=== PATIENT | male | born 1965 | race Caucasian/White ===

== ENCOUNTER → 2016-06-14 | Outpatient (CLI) | payer OTHER ==
[~2016-06-14] MED LIST: AMB10 PO; BUPR150T7 PO; CLXUNK PO; FRC PO; METH10TA2 PO; OMEP40CA PO; VTMB12UNK PO; [UNRECOGNIZED DRUG - OTHER] PO; vitamin d3 PO
[2016-06-14 14:18] LABS: ALB/GLOB RATIO 0.8 (0.9-2); ALKALINE PHOSPHATASE 119 U/L (45-117); ALT/SGPT 34 U/L (12-78); AST/SGOT 34 U/L (15-37); BLOOD UREA NITROGEN 13 mg/dl (7-18); BUN/CREATININE RATIO 15.4 (10-20); CALCIUM 8.5 mg/dl (8.5-10.1); CARBON DIOXIDE 29 mmol/L (21-32); CHLORIDE 104 mmol/L (98-107); CHOLESTEROL 171 mg/dl (0-200); CHOLESTEROL/HDL RATIO 4.5; CREATININE 0.87 mg/dl (0.60-1.40); GLUCOSE 138 mg/dl (70-99); HDL CHOLESTEROL 38 mg/dl; LDL CHOLESTEROL CALCULATED 88 mg/dl; POTASSIUM 4.5 mmol/L (3.5-5.1); SODIUM 143 mmol/L (136-145); TRIGLYCERIDES 225 mg/dl (0-150); VERY LOW DENSITY LIPOPROT CALC 45 mg/dl
== END | disposition home or self-care (01) ==
LOC: C.LABPVFM 10:28
PROVIDERS: ATTEND Family Medicine
DX: G89.4 Chronic pain syndrome (principal)

== ENCOUNTER → 2016-06-16 | Outpatient (CLI) | payer OTHER ==
[2016-06-16 13:22] LABS: HEMATOCRIT 38.1 % (42-52); MEAN CORPUSCULAR HEMOGLOBIN 29.9 pg (25-34); MEAN CORPUSCULAR HGB CONC 33.6 g/dl (32-36); MEAN PLATELET VOLUME 11.5 fL (7.4-10.4); PLATELET COUNT 214 K/uL (130-400); RED BLOOD COUNT 4.28 M/uL (4.7-6.1); WHITE BLOOD COUNT 6.37 K/uL (4.8-10.8)
[2016-06-16 13:44] LABS: ESTIMATED AVERAGE GLUCOSE 137 mg/dl; HA1C FLAG Normal (Normal)
--- NOTE | 2016-07-15 11:58 | CODING QUERY MEDICAL NECESSITY ---
CQSUPPORTING DIAGNOSIS NEEDED A supporting diagnosis is required for the test/procedure performed on this patient in order for us to be reimbursed by the patient's insurance. Please provide a supporting diagnosis for the following test/procedure listed below next to the test name along with your signature. *If there is no additional diagnosis for this patient that would support the following test/procedure please document that below next to the test/procedure. Test(s)/Procedure(s) that require a supporting diagnosis: DOS 06/16/16 GLYCATED HEMOGLOBIN Provider Signature: Date: Thank you Aracelis Ambrocio Ring[employer] Information Management Once completed, please kindly fax back to [phone] For questions please call [phone]
== END | disposition home or self-care (01) ==
LOC: C.LABPVFM 09:49
PROVIDERS: ATTEND Family Medicine
DX: G89.4 Chronic pain syndrome (principal); R73.01 Impaired fasting glucose

== ENCOUNTER → 2016-11-28 | Outpatient (CLI) | payer OTHER ==
[~2016-11-28] MED LIST changes: +ATROPINE SULFATE 0.1 MG/ML 5ML SYR ONE; +DOBUTamine HCL 12.5 MG/ML 20 ML VIAL ONE; +METOPROLOL TARTRATE 1 MG/ML VIAL ONE; +PERFLUTREN LIPID MICROSPHERE (DEFINITY) IV ONE
--- NOTE | 2016-11-28 17:21 | DOBUTAMINE ECHO ---
*NOTICE TO RECEIVING [employer] This information is strictly Confidential and protected under [place] law. [place] law prohibits you from making any further disclosure of this information unless further disclosure is expressly permitted by the written consent of the person to whom it pertains or is authorized by law. A general authorization for the release of medical or other information is not sufficient for this purpose. Hospital accepts no responsibility if the information is made available to any other person, INCLUDING THE PATIENT. Interpretation Summary * Name: PRESTON BUNN Study Date: 11/28/2016 12:07 PM * Patient Location: [facility] * : 1965 (M/d/yyyy) Gender: Male Height: 69 in * Age: 51 yrs Ethnicity: [place] Weight: 273 lb * Ordering Physician: Yifan Bland * Referring Physician: Yifan Bland * Performed By: Peace Julio RCS * * Reason For Study: CHEST PAIN * BSA: 2.4 m2 * -- Conclusions -- * The left ventricle is borderline dilated. * Left ventricular systolic function is normal. * Diastolic dysfunction, Grade II (pseudonormalization pattern). * Normal dobutamine stress echocardiogram without evidence of inducible ischemia. Procedure Details * A contrast injection of Definity was performed to improve assessment of LV function. * Contrast was injected into an intravenous site in the right arm. * One vial of Definity ultrasound contrast was diluted in normal saline to a total volume of 10 ml. A total of '8' ml of solution was administered during imaging. * Lot # [id number] of Definity utilized for procedure. * Expiration date 1AUG. * The attending nurse who injected the contrast agent was Dayana Mensah RN. Left Ventricular Findings with Stress * Normal dobutamine stress echocardiogram without evidence of inducible ischemia. Left Ventricle * The left ventricle is borderline dilated. * There is normal left ventricular wall thickness. * Left ventricular systolic function is normal. * Diastolic dysfunction, Grade II (pseudonormalization pattern). * The left ventricular wall motion is normal at rest. Right Ventricle * The right ventricle is normal in size and function. Atria * The left atrial size is normal. * Right atrial size is normal. Mitral Valve * The mitral valve anatomy is normal. * There is no mitral regurgitation noted. Tricuspid Valve * The tricuspid valve is not well visualized, but is grossly normal. * Significant tricuspid regurgitation is absent. Aortic Valve * The aortic valve is normal in structure and function. * No hemodynamically significant valvular aortic stenosis. * There is no significant aortic regurgitation. Pericardium * There is no pericardial effusion. Stress Parameters * Normal baseline electrocardiogram. * Upsloping ST depression in lead II only during peak dobutamine. * Rest heart rate was '53' BPM. * Rest blood pressure was '113/76' * Maximum heart rate achieved was 146 bpm. * Maximum heart rate was 85 % of maximum age-predicted heart rate. * Maximum blood pressure was '186/96' * Maximum Dobutamine infusion rate was '50' mcg/kg/min. * A total of 0.5 mg of intravenous Atropine was used to supplement Dobutamine for heart rate response. * Dobutamine infusion was terminated due to achieving target heart rate * A total of 5 mg of IV Metoprolol was administered to reverse Dobutamine-induced tachycardia. * The patient did not exhibit any symptoms during drug infusion. Left Ventricular Findings with Stress * Normal baseline echocardiogram with normal augmentation to dobutamine. No inducible wall motion abnormalities. Normal baseline EKG with some upsloping ST depression in lead II only. No symptoms reported MMode 2D Measurements and Calculations IVSd 0.92 cm LVIDd 5.7 cm LVIDs 3.3 cm LVPWd 0.91 cm IVS/LVPW 1.0 FS 42.6 % EDV(Teich) 160.4 ml ESV(Teich) 43.3 ml EF(Teich) 73.0 % EDV(cubed) 185.8 ml ESV(cubed) 35.1 ml EF(cubed) 81.1 % LV mass(C)d 203.2 grams LV mass(C)dI 86.2 grams/m\S\2 SV(Teich) 117.1 ml SI(Teich) 49.7 ml/m\S\2 SV(cubed) 150.7 ml SI(cubed) 63.9 ml/m\S\2 LVAd ap4 36.7 cm\S\2 LVLd ap4 8.8 cm EDV(MOD-sp4) 120.1 ml EDV(sp4-el) 129.9 ml LVAs ap4 17.3 cm\S\2 LVLs ap4 6.8 cm ESV(MOD-sp4) 36.1 ml ESV(sp4-el) 37.3 ml EF(MOD-sp4) 69.9 % EF(sp4-el) 71.3 % LVAd ap2 36.1 cm\S\2 LVLd ap2 9.8 cm EDV(MOD-sp2) 109.7 ml EDV(sp2-el) 113.7 ml LVAs ap2 18.8 cm\S\2 LVLs ap2 7.4 cm ESV(MOD-sp2) 40.1 ml ESV(sp2-el) 40.6 ml EF(MOD-sp2) 63.4 % EF(sp2-el) 64.3 % LVLd %diff 9.9 % EDV(MOD-bp) 119.1 ml LVLs %diff 8.3 % ESV(MOD-bp) 39.7 ml EF(MOD-bp) 66.6 % SV(MOD-sp4) 84.0 ml SI(MOD-sp4) 35.6 ml/m\S\2 SV(MOD-sp2) 69.5 ml SI(MOD-sp2) 29.5 ml/m\S\2 SV(MOD-bp) 79.3 ml SI(MOD-bp) 33.7 ml/m\S\2 SV(sp4-el) 92.6 ml SI(sp4-el) 39.3 ml/m\S\2 SV(sp2-el) 73.1 ml SI(sp2-el) 31.0 ml/m\S\2 Doppler Measurements and Calculations MV E max jasper 94.6 cm/sec MV A max jasper 76.2 cm/sec MV E/A 1.2 MV dec time 0.18 sec Ao V2 max 150.7 cm/sec Ao max PG 9.1 mmHg Ao max PG (full) 4.6 mmHg LV V1 max PG 4.5 mmHg LV V1 mean PG 2.2 mmHg LV V1 max 105.7 cm/sec LV V1 mean 67.0 cm/sec LV V1 VTI 22.9 cm
--- NOTE | 2016-12-04 13:53 | CODING QUERY MEDICAL NECESSITY ---
CQSUPPORTING DIAGNOSIS NEEDED A supporting diagnosis is required for the test/procedure performed on this patient in order for us to be reimbursed by the patient's insurance. Please provide a supporting diagnosis for the following test/procedure listed below next to the test name along with your signature. *If there is no additional diagnosis for this patient that would support the following test/procedure please document that below next to the test/procedure. Test(s)/Procedure(s) that require a supporting diagnosis: KARTHIKEYAN 11/28/16 TRANSESOPHAGEAL ECHO CARDIOGRAM Provider Signature: Date: Thank you Aracelis Ambrocio Health Information Management Once completed, please kindly fax back to [phone] For questions please call [phone]
== END | disposition home or self-care (01) ==
LOC: C.CPL 11:47
PROVIDERS: ATTEND Family Medicine
DX: R07.89 Other chest pain (principal); I20.0 Unstable angina; R06.00 Dyspnea, unspecified; E66.01 Morbid (severe) obesity due to excess calories; I10 Essential (primary) hypertension; E78.5 Hyperlipidemia, unspecified

== ENCOUNTER 2017-09-19 01:35 | Emergency (ER) | payer OTHER ==
[~2017-09-19] VITALS: Ht 175.3 cm; Wt 129.1 kg
[~2017-09-19 01:35] MED LIST changes: -ATROPINE SULFATE 0.1 MG/ML 5ML SYR ONE; -DOBUTamine HCL 12.5 MG/ML 20 ML VIAL ONE; -METOPROLOL TARTRATE 1 MG/ML VIAL ONE; -PERFLUTREN LIPID MICROSPHERE (DEFINITY) IV ONE
[2017-09-19 01:39] VITALS: TEMP 36.7; Ht 175.3 cm; Wt 129.1 kg
--- NOTE | 2017-09-19 02:26 | EMERGENCY ROOM VISIT NOTE ---
History Report prepared by Nato: Devika Moy Under the Supervision of: Dr. Kaylee King D.O. First contact with patient: 01:54 Chief Complaint: EAR PAIN Stated Complaint: SEVERE PAIN IN RIGHT EAR DUE TO INFECTED PIERCING History of Present Illness The patient is a 52 year old male who presents to the Emergency Room with complaints of worsening pain and swelling to his left ear beginning yesterday. The patient reports he got his ear pieced a week ago to "help with my migraines ". He reports his pain radiates to his jaw. The patient reports he attempted to take the earring out but was unable too. He has a history of PHILLIPS, a nonspecific muscle disease, and migraines. He denies any abdominal pain, nausea , vomiting, fevers or chills. The patient took ibuprofen at 11 pm last night. Source of History: patient Onset: yesterday Position: ear (left) Quality: other (swelling and pain) Timing: worsening Associated Symptoms: No fevers, No chills, No nausea, No vomiting, No abdominal pain Review of Systems See HPI for pertinent positives & negatives. A total of 10 systems reviewed and were otherwise negative. Past Medical & Surgical Medical Problems: (1) Migraines (2) PHILLIPS (nonalcoholic steatohepatitis) Family History Patient reports no known family medical history. Social History Smoking Status: Never Smoker Alcohol Use: none Marital Status: Occupation Status: disabled Current/Historical Medications Scheduled Acetamin/Butalbital/Caffeine (Fioricet 325MG/50MG/40MG *), 1 TAB PO PRN Bupropion Hcl (Wellbutrin Sr), 150 MG PO DAILY Cephalexin Monohydrate (Keflex), 500 MG PO QID Citalopram (Celexa Unknown Dose), 40 MG PO DAILY Cyanocobalamin (Vitamin B-12 Unkown Dose), 1 TAB PO DAILY Methadone Hcl (Dolophine), 20 MG PO BID Omeprazole (Prilosec), 40 MG PO DAILY Ursodiol (Actigall Unknown Dose), 1 TABLET PO DAILY Zolpidem Tartrate (Ambien *), 10 MG PO HS [vitamin d3], 1 TAB PO DAILY Allergies Coded Allergies: Penicillins (Verified Allergy, Unknown, 12/21/11) Physical Exam Vital Signs Date Time Temp Pulse Resp B/P (MAP) Pulse Ox O2 Delivery O2 Flow Rate FiO2 09/19/17 04:34 61 15 130/67 94 09/19/17 03:41 60 18 136/95 96 Room Air 09/19/17 01:39 36.7 65 16 142/90 96 Room Air Physical Exam HEENT: Head - normocephalic and atraumatic Pupils are equal, round, and reactive to light. Extraocular eye muscles are intact, and sclera are anicteric. Ear- right pinna appears moderately edematous and erythematous, piercing is in place of cartilaginous potion of the pinna with pus drainage. Nose - moist nasal mucosa without discharge. Mouth - moist buccal mucosa. Oropharynx is nonerythematous and there is no tonsillar exudate or edema noted. Neck: Supple; no JVD, nuchal rigidity, cervical lymphadenopathy. Heart: Regular rate and rhythm. There is a normal S1 and S2 with no murmurs, clicks, or gallops appreciated. Lungs: Clear to auscultation bilaterally with no wheezes, rales, or rhonchi. Abdomen: Soft, completely nontender, nondistended, with good bowel sounds. There are no palpable pulsatile masses or hepatosplenomegaly. There is no guarding, rigidity, or rebound noted. Extremities: No evidence of cyanosis, clubbing, or edema. There are easily palpable peripheral pulses. Skin: warm and dry with good turgor and no rashes. Medical Decision & Procedures Laboratory Results 09/19/17 02:45 Red Blood Count 4.00, Mean Corpuscular Volume 87.3, Mean Corpuscular Hemoglobin 29.0, Mean Corpuscular Hemoglobin Concent 33.2, Mean Platelet Volume 10.5, Neutrophils (%) (Auto) 45.6, Lymphocytes (%) (Auto) 43.8, Monocytes (%) (Auto) 7.0, Eosinophils (%) (Auto) 3.2, Basophils (%) (Auto) 0.2, Neutrophils # (Auto) 2.61, Lymphocytes # (Auto) 2.50, Monocytes # (Auto) 0.40, Eosinophils # (Auto) 0.18, Basophils # (Auto) 0.01 09/19/17 02:45 Test 09/19/17 02:45 White Blood Count 5.71 K/uL (4.8-10.8) Red Blood Count 4.00 M/uL (4.7-6.1) Hemoglobin 11.6 g/dL (14.0-18.0) Hematocrit 34.9 % (42-52) Mean Corpuscular Volume 87.3 fL (80-100) Mean Corpuscular Hemoglobin 29.0 pg (25-34) Mean Corpuscular Hemoglobin Concent 33.2 g/dl (32-36) Platelet Count 161 K/uL (130-400) Mean Platelet Volume 10.5 fL (7.4-10.4) Neutrophils (%) (Auto) 45.6 % Lymphocytes (%) (Auto) 43.8 % Monocytes (%) (Auto) 7.0 % Eosinophils (%) (Auto) 3.2 % Basophils (%) (Auto) 0.2 % Neutrophils # (Auto) 2.61 K/uL (1.4-6.5) Lymphocytes # (Auto) 2.50 K/uL (1.2-3.4) Monocytes # (Auto) 0.40 K/uL (0.11-0.59) Eosinophils # (Auto) 0.18 K/uL (0-0.5) Basophils # (Auto) 0.01 K/uL (0-0.2) RDW Standard Deviation 42.5 fL (36.4-46.3) RDW Coefficient of Variation 13.2 % (11.5-14.5) Immature Granulocyte % (Auto) 0.2 % Immature Granulocyte # (Auto) 0.01 K/uL (0.00-0.02) Anion Gap 3.0 mmol/L (3-11) Est Creatinine Clear Calc Drug Dose 138.4 ml/min Estimated GFR () 117.8 Estimated GFR (Non- 101.6 BUN/Creatinine Ratio 16.4 (10-20) Calcium Level 8.4 mg/dl (8.5-10.1) Laboratory results per my review. Medications Administered Medications (Trade) Dose Ordered Sig/Kiran Route Start Time Stop Time Status Last Admin Dose Admin Cephalexin Monohydrate (Keflex Cap) 500 mg NOW ONCE PO 09/19/17 04:15 09/19/17 04:16 DC 09/19/17 04:22 500 MG Procedure Keflex Cap PO. ED Course 0218: Past medical records reviewed. The patient was evaluated in room B4B. A complete history and physical exam was performed. The piercing was removed. 0409: I updated the patient on his test results. He is feeling well. 0415: Ordered Keflex Cap 500 mg PO. 0435: I discussed findings and results with the patient. He verbalized agreement of the treatment plan. He was discharged home. Medical Decision The patient is a 52 year old male who presents to the Emergency Room with complaints of worsening pain and swelling to his left ear beginning yesterday. Differential diagnosis includes infected pinna infected piercing, bacteremia. Lab results show: No leukocytosis, hemoglobin 11.6, no bandemia, normal renal function, glucose 110. This is a 52-year-old male patient who presents to the emergency department with swelling and pain to the right ear. On physical exam, there is obvious infection of the piercing with some pus coming from around the piercing. The piercing was removed. Laboratory studies were drawn and were fairly unremarkable. The patient will be treated with oral Keflex. He was encouraged to rest with his head elevated. He can use Tylenol or Motrin for pain. If symptoms worsen, he can return to the ER. Medication Reconcilliation Current Medication List: was personally reviewed by me Blood Pressure Screening Patient's blood pressure: Elevated blood pressure Blood pressure disposition: Elevated BP felt to be situational Impression Primary Impression: Pinna infection, acute Scribe Attestation The scribe's documentation has been prepared under my direction and personally reviewed by me in its entirety. I confirm that the note above accurately reflects all work, treatment, procedures, and medical decision making performed by me. Departure Information Dispostion Home / Self-Care Prescriptions Cephalexin Monohydrate (KEFLEX) 500 Mg Cap 500 MG PO QID, #28 CAP Prov: Kaylee King D.O. 09/19/17 Referrals Yifan Bland M.D. (PCP) Forms HOME CARE DOCUMENTATION FORM, IMPORTANT VISIT INFORMATION, WORK / SCHOOL INSTRUCTIONS Patient Instructions My [facility] Additional Instructions Rest with your head elevated to minimize swelling apply cold compresses Take keflex every 6 hours for a week Return to the ER for worsening symptoms or fever Problem Qualifiers Primary Impression: Pinna infection, acute Laterality: right Qualified Codes: H60.391 - Other infective otitis externa , right ear
[2017-09-19 02:58] LABS: BASO % 0.2 %; BASO ABS # 0.01 K/uL (0-0.2); EOS % 3.2 %; EOS ABS # 0.18 K/uL (0-0.5); HEMATOCRIT 34.9 % (42-52); HEMOGLOBIN 11.6 g/dL (14.0-18.0); IG# 0.01 K/uL (0.00-0.02); LYMPH % 43.8 %; MEAN CELL VOLUME 87.3 fL (80-100); MEAN CORPUSCULAR HGB CONC 33.2 g/dl (32-36); MEAN PLATELET VOLUME 10.5 fL (7.4-10.4); NEUT % 45.6 %; NEUT ABS # 2.61 K/uL (1.4-6.5); PLATELET COUNT 161 K/uL (130-400); RED CELL DISTRIBUTION WIDTH CV 13.2 % (11.5-14.5); RED CELL DISTRIBUTION WIDTH SD 42.5 fL (36.4-46.3); WHITE BLOOD COUNT 5.71 K/uL (4.8-10.8)
[2017-09-19 03:15] LABS: CALCIUM 8.4 mg/dl (8.5-10.1); CREATININE 0.85 mg/dl (0.60-1.40); POTASSIUM 3.9 mmol/L (3.5-5.1)
[2017-09-19] MEDS ORDERED: CEPHALEXIN MONOHYDRATE 250 MG CAP PO ONE (04:15)
[2017-09-19] MEDS ORDERED: CEPH500C2 PO (04:29)
[2017-09-19 04:34] VITALS: BP 130/67; PULSE 61; O2SAT 94
--- NOTE | 2017-09-21 14:02 | Pharmacy Progress Note ---
ED Pharmacist Culture FollowUp Date of Service: September 21, 2017. Patient was sent home with a prescription for cephalexin, which should cover the Staph aureus (MSSA) growing from the patient's drain-surface right ear culture, based on reported sensitivity to oxacillin.
== END 2017-09-19 04:37 | disposition home or self-care (01) ==
LOC: C.EDB 01:36
DX: H60.391 Other infective otitis externa, right ear (principal); K75.81 Nonalcoholic steatohepatitis (NASH); Z79.899 Other long term (current) drug therapy; Z88.0 Allergy status to penicillin